=== PATIENT | female | born 1995 | race Caucasian/White ===

== ENCOUNTER 2020-10-09 12:28 | Emergency (ER) | payer OTHER ==
[2020-10-09 13:49] LABS: HEMOGLOBIN 13.2 gm/dl (12.3-15.3); RED BLOOD COUNT 4.99 M/UL (4.00-5.10); WHITE BLOOD COUNT 11.6 K/UL (4.5-11.0)
[2020-10-09 14:16] LABS: BUN/CREATININE RATIO 5 (0-10)
== END 2020-10-09 17:19 | disposition home or self-care (01) ==
LOC: ER1 12:28
PROVIDERS: Physician Assistant Medical
DX: O20.9 Hemorrhage in early pregnancy, unspecified (principal); O99.331 Smoking (tobacco) complicating pregnancy, first trimester; F17.290 Nicotine dependence, other tobacco product, uncomplicated; Z79.899 Other long term (current) drug therapy
CPT/HCPCS: 76817; 80053; 81001; 84702; 85025; 86900; 86901; 99284

== ENCOUNTER 2021-05-09 09:46 | Observation (INO) | payer OTHER ==
[~2021-05-09] VITALS: Ht 165.1 cm; Wt 117.5 kg
[2021-05-09 10:51] LABS: HEMOGLOBIN 11.9 gm/dl (12.3-15.3); RED BLOOD COUNT 4.25 M/UL (4.00-5.10); WHITE BLOOD COUNT 11.1 K/UL (4.5-11.0)
[2021-05-09] MEDS ORDERED: AZITHROMYCIN1 GM PO (11:08)
[2021-05-09] MEDS ORDERED: PRENATABS FA T1 EACH PO (11:09)
[2021-05-09 11:10] LABS: BUN/CREATININE RATIO 16 (0-10)
[2021-05-09] MEDS ORDERED: OMEPRAZOLE20 MG PO (11:10)
[2021-05-10 11:06] LABS: URINE TOTAL PROTEIN 9 mg/dl
== END 2021-05-10 11:40 | disposition home or self-care (01) ==
LOC: GENOP 09:46 → OB 10:30
PROVIDERS: Obstetrics & Gynecology; ADMIT Obstetrics & Gynecology
DX: O13.3 Gestational [pregnancy-induced] hypertension without significant proteinuria, third trimester (principal); O99.333 Smoking (tobacco) complicating pregnancy, third trimester; F17.290 Nicotine dependence, other tobacco product, uncomplicated; Z3A.35 35 weeks gestation of pregnancy; Z20.822 Contact with and (suspected) exposure to COVID-19; O41.03X0 Oligohydramnios, third trimester, not applicable or unspecified
CPT/HCPCS: 36415; 80053; 81001; 82570; 84156; 84550; 85025; 96375; G0378; J7120; U0002

== ENCOUNTER 2021-05-22 13:08 | Outpatient (CLI) | payer OTHER ==
[~2021-05-22 13:08] MED LIST: AZITHROMYCIN1 GM PO; OMEPRAZOLE20 MG PO; PRENATABS FA T1 EACH PO
[2021-05-22 13:56] LABS: HEMOGLOBIN 12.1 gm/dl (12.3-15.3); RED BLOOD COUNT 4.47 M/UL (4.00-5.10); WHITE BLOOD COUNT 10.2 K/UL (4.5-11.0)
[2021-05-23] MEDS ORDERED: TRANDATE 200 M200 MG PO (07:02)
== END 2021-05-22 14:18 | disposition home or self-care (01) ==
LOC: GENOP 13:08
PROVIDERS: Obstetrics & Gynecology
DX: Z01.812 Encounter for preprocedural laboratory examination (principal)
CPT/HCPCS: 36415; 81001; 85025; J3430

== ENCOUNTER 2021-05-23 05:30 | Inpatient (IN) | payer OTHER ==
[~2021-05-23] VITALS: Ht 165.1 cm; Wt 117.9 kg
[2021-05-23] MEDS ORDERED: TRANDATE 200 M200 MG PO (07:02)
[2021-05-23 07:07] LABS: BUN/CREATININE RATIO 20 (0-10)
[2021-05-24 06:39] LABS: HEMOGLOBIN 10.9 gm/dl (12.3-15.3)
[2021-05-24] MEDS ORDERED: HYDROCODON-ACE1 EAC4 PO (11:17)
[2021-05-24] MEDS ORDERED: DOCUSATE SODIU100 MG PO (11:17)
[2021-05-24] MEDS ORDERED: IBUPROFEN600 MG PO (11:17)
== END 2021-05-25 09:28 | disposition home or self-care (01) | DRG 788 ==
LOC: OB 05:30
PROVIDERS: ADMIT Obstetrics & Gynecology
PROC: 10D00Z1 Extraction of Products of Conception, Low, Open Approach (ICD-10-PCS; principal; 2021-05-23 09:00)
DX: O13.4 Gestational [pregnancy-induced] hypertension without significant proteinuria, complicating childbirth (principal); O99.334 Smoking (tobacco) complicating childbirth; O36.5930 Maternal care for other known or suspected poor fetal growth, third trimester, not applicable or unspecified; O77.0 Labor and delivery complicated by meconium in amniotic fluid; O32.1XX0 Maternal care for breech presentation, not applicable or unspecified; Z37.0 Single live birth; Z3A.37 37 weeks gestation of pregnancy; Z82.49 Family history of ischemic heart disease and other diseases of the circulatory system; Z81.8 Family history of other mental and behavioral disorders; Z87.891 Personal history of nicotine dependence; Z79.899 Other long term (current) drug therapy
CPT/HCPCS: 36415; 80053; 82800; 85014; 85018; 90471; 90715; C9113; J0690; J1170; J1650; J2370; J2405; J2590; J3430; J7120